=== PATIENT | male | born 1960 | race Caucasian/White ===

== ENCOUNTER 2016-08-10 09:03 | Emergency (ER) | payer OTHER ==
[~2016-08-10] VITALS: Ht 175.3 cm; Wt 59.0 kg
== END 2016-08-10 10:22 | disposition short-term general hospital (02) ==
LOC: ER 09:03
PROC: 0HQFXZZ Repair Right Hand Skin, External Approach (ICD-10-PCS; principal; 2016-08-10)
PROC: 2W3JX1Z Immobilization of Right Finger using Splint (ICD-10-PCS; 2016-08-10)
DX: S67.21XA Crushing injury of right hand, initial encounter (principal); S62.640A Nondisplaced fracture of proximal phalanx of right index finger, initial encounter for closed fracture; S62.642A Nondisplaced fracture of proximal phalanx of right middle finger, initial encounter for closed fracture; S61.212A Laceration without foreign body of right middle finger without damage to nail, initial encounter; W23.0XXA Caught, crushed, jammed, or pinched between moving objects, initial encounter
CPT/HCPCS: J0690